=== PATIENT | male | born 1965 | race Caucasian/White ===

== ENCOUNTER → 2021-04-27 | Outpatient (CLI) | payer OTHER ==
--- NOTE | 2021-05-02 17:19 | SLE ---
[facility] [place] [address] POLYSOMNOGRAPHY STUDY Name: SANDY SALAZAR Room #: REG MAMI EspinoGamal#: [id number] Admission: 04/27/21 Attend Phys: Gomez Garza MD Discharge: Date of : 67 Report #: [id number] THIS REPORT FOR: cc: Physician not on staff Physician not on staff Gomez Garza MD ~ cc: Dr. Kirk Wolfe DATE OF SERVICE: 04/27/2021 HOME SLEEP STUDY ATTENDING PHYSICIAN: Dr. Wolfe. The patient is 56 years old who weighs 237 pounds with a BMI of 37.1. The patient's [place] score was 0. The patient underwent home sleep study performed at [place] sleep lab. Total recording time was 531 minutes. During the night study, the patient had 181 obstructive apneas, no central or mixed apneas and 37 hypopneas. The patient's AHI was 27.2 per hour. The patient's flow signal was intermittently poor. However, despite that, there was enough evidence of obstructive sleep apnea. Nocturnal oximetry study revealed an average oxygen saturation of 93% with a lowest of 82%. A 58 minutes were spent with oxygen saturation of less than 90%. Mean heart rate 86 beats per minute with a maximum of 115 beats per minute. IMPRESSION: 1. Moderate obstructive sleep apnea at an AHI of 27.2 per hour. Supine AHI was 43.8 per hour. Flow signal was intermittently weak during the night of the study. 2. Nocturnal hypoxia secondary to obstructive sleep apnea. RECOMMENDATIONS: 1. The patient would benefit from return to the sleep lab for CPAP titration study. Alternatively home auto CPAP can be arranged. 2. Once the patient is optimally treated with CPAP, then follow up in 4-6 weeks to assess compliance and to document clinical improvement. 3. Avoid [employer] depressants. 4. Avoid supine sleep. [facility] [address] [place] [address] POLYSOMNOGRAPHY STUDY Name: SANDY SALAZAR Room #: REG MAMI Srinivas.#: [id number] Admission: 04/27/21 Attend Phys: Gomez Garza MD Discharge: Date of : 67 Report #: [id number] 5. Cautioned regarding driving until symptoms of sleep apnea resolves with the above recommendations. <ELECTRONICALLY SIGNED> By: Gomez Garza MD 05/02/21 1719 14 23 Gomez Garza MD /nt
== END ==
LOC: SLEEPLAB 11:12
PROVIDERS: ATTEND Internal Medicine Critical Care Medicine
DX: G47.33 Obstructive sleep apnea (adult) (pediatric) (principal); G47.10 Hypersomnia, unspecified; G47.00 Insomnia, unspecified